=== PATIENT | male | born 1935 | race Caucasian/White ===

== ENCOUNTER → 2020-11-03 | Outpatient (CLI) | payer MEDICARE | LOC: HEART CORB 09:30 | DX: I42.0 Dilated cardiomyopathy (principal); I35.1 Nonrheumatic aortic (valve) insufficiency; I34.0 Nonrheumatic mitral (valve) insufficiency; I07.1 Rheumatic tricuspid insufficiency ==

== ENCOUNTER → 2020-11-10 | Outpatient (CLI) | payer MEDICARE | LOC: HEART CORB 11:19 | DX: I42.0 Dilated cardiomyopathy (principal); I50.812 Chronic right heart failure; I48.19 Other persistent atrial fibrillation; I10 Essential (primary) hypertension | CPT/HCPCS: 78452; A9502; J2785 ==